=== PATIENT | female | born 1990 | race Hispanic/Latino ===

== ENCOUNTER 2018-08-07 06:17 | Inpatient (IN) | payer BC ==
[~2018-08-07 06:17] MED LIST: CALCIUM500 M1 PO; PRENATABS FA T1 EACH PO
--- NOTE | 2018-08-07 16:57 | PR ---
[facility] [address] [place], [place] [address] Signed Progress Notes IP Datetime Report Generated by CPN: 08/07/2018 16:57 PROGRESS NOTES: [id number] Impression: Slow Progression of Labor Procedures: Sterile Vag Exam Plan: Continue present management Informed Consent Obtain: Vaginal Delivery; Risks, Benefits and Alternatives Discussed VITAL SIGNS: [id number] Vital Signs: Reviewed; Within Normal Limits EXAM: [id number] Dilatation: 4.0 Effacement: 70 Station: -3 Uterine Contractions: q 2 to 4 min MEMBRANES: [id number] Membrane Status: Ruptured Comments: Becoming more uncomfortable with pitocin but slow progress. Will continue. Fetus A: [id number] FHR Baseline: 140 Variability: Moderate 6-25bpm Accelerations: 15X15 Decelerations: None FHR Category: Category I Presentation: Vertex Comments on Fetus A: No evidence of metabolic acidosis Fetus B: [id number] Signing Physician: Aury Villar MD Copies: ~ *Electronically Signed* 08/07/18 1657 AURY VILLAR MD PATIENT NAME: ROLO GABRIEL PROGRESS NOTE DATE OF : 89 PHYSICIAN: AURY VILLAR MD RPT #: [id number] REPORT IS CONFIDENTIAL AND NOT TO BE RELEASED WITHOUT AUTHORIZATION
--- NOTE | 2018-08-07 19:09 | PR ---
[facility] [address] [place], [place] [address] Signed Progress Notes IP Datetime Report Generated by MANOJ: 08/07/2018 19:09 PROGRESS NOTES: [id number] Impression: Normal progression of labor; Non-reassuring heart rate Procedures: Intrauterine Pressure Catheter; Scalp Electrode Other Procedures: scalp electrode not working so back doppler Plan: Anticipate Vaginal Delivery Informed Consent Obtain: Vaginal Delivery; Risks, Benefits and Alternatives Discussed VITAL SIGNS: [id number] Vital Signs: Reviewed; Within Normal Limits EXAM: [id number] Dilatation: 9.5 Effacement: 100 Station: 0 Uterine Contractions: q 2 to 4 min MEMBRANES: [id number] Membrane Status: Ruptured Amniotic Fluid Color: Clear Comments: called for frequent deep variable decels; during evlauation patient went from 4 to 7 to 9.5 cm Pitocin already d/c'd and on O2 with recovery of FHR, so close monitoring with rapid progress, so expected delivery soon. Dr. Villar present for delivery. Fetus A: [id number] FHR Baseline: 135 Variability: Moderate 6-25bpm Accelerations: 15X15 Decelerations: Variable FHR Category: Category I Presentation: Vertex Comments on Fetus A: No evidence of metabolic acidosis Fetus B: [id number] Signing Physician: Rony Tong MD Copies: ~ *Electronically Signed* 08/07/18 1909 RONY TONG MD PATIENT NAME: ROLO GABRIEL PROGRESS NOTE DATE OF : 90 PHYSICIAN: RONY TONG MD RPT #: [id number] REPORT IS CONFIDENTIAL AND NOT TO BE RELEASED WITHOUT AUTHORIZATION
--- NOTE | 2018-08-08 07:43 | PR ---
[facility] [address] [facility] [facility] [place], [place] [address] Signed PP Progress Notes Datetime Report Generated by MANOJ: 08/08/2018 07:43 SUBJECTIVE: [id number] Pain: Within normal limits Vital Signs: [id number] Vital Signs: Reviewed; Within Normal Limits EXAM: [id number] Cardiovascular: Not Done Respiratory: Not Done Abdomen/Uterus: Abnormal Lochia: Normal Vulva/Perineum: Not Done Breasts: Not Done CVA Tenderness: Not Done Extremities: Normal Incision: Not Applicable Progress: Abnormal Exam Comments: Fundus firm, NT @ U-1 H/H 11.3/33.5, WBC 9.8, plat 209k IMPRESSION/PLAN/PROCEDURES: [id number] Impression: Normal progression; difficulties Plan: Continue present management; consult Progress Notes: Doing well other than breast feeding issues. Signing Physician: Aury Villar MD Copies: ~ *Electronically Signed* 08/08/18 0743 AURY VILLAR MD PATIENT NAME: ROLO GABRIEL PROGRESS NOTE DATE OF : 90 PHYSICIAN: AURY VILLAR MD RPT #: [id number] REPORT IS CONFIDENTIAL AND NOT TO BE RELEASED WITHOUT AUTHORIZATION
--- NOTE | 2018-08-09 09:02 | PR ---
[facility] [address] [place] [address] Signed PP Progress Notes Datetime Report Generated by CPN: 08/09/2018 09:01 SUBJECTIVE: [id number] Pain: Within normal limits Vital Signs: [id number] Vital Signs: Reviewed; Within Normal Limits EXAM: [id number] Cardiovascular: Not Done Respiratory: Not Done Abdomen/Uterus: Abnormal Lochia: Normal Vulva/Perineum: Not Done Breasts: Not Done CVA Tenderness: Not Done Extremities: Normal Incision: Not Applicable Progress: Normal Exam Comments: Fundus firm, NT @ U-1. IMPRESSION/PLAN/PROCEDURES: [id number] Impression: Normal progression Plan: Discharge Procedures: None Progress Notes: Doing well. She is ready for D/C. Signing Physician: Aury Villar MD Copies: ~ *Electronically Signed* 08/09/18900 AURY VILLAR MD PATIENT NAME: ROLO GABRIEL PROGRESS NOTE DATE OF : 90 PHYSICIAN: AURY VILLAR MD RPT #: [id number] REPORT IS CONFIDENTIAL AND NOT TO BE RELEASED WITHOUT AUTHORIZATION
== END 2018-08-09 13:25 | disposition home or self-care (01) | DRG 807 ==
LOC: FBCO 06:17 → FBC 07:54
PROVIDERS: ADMIT Obstetrics & Gynecology
PROC: 10E0XZZ Delivery of Products of Conception, External Approach (ICD-10-PCS; principal; 2018-08-07)
PROC: 10H07YZ Insertion of Other Device into Products of Conception, Via Natural or Artificial Opening (ICD-10-PCS; 2018-08-07)
DX: O42.92 Full-term premature rupture of membranes, unspecified as to length of time between rupture and onset of labor (principal); Z37.0 Single live birth; Z3A.38 38 weeks gestation of pregnancy; O76 Abnormality in fetal heart rate and rhythm complicating labor and delivery; O69.81X0 Labor and delivery complicated by cord around neck, without compression, not applicable or unspecified; O99.214 Obesity complicating childbirth; E66.9 Obesity, unspecified
CPT/HCPCS: 36415; 82803; 84112; 85027; J2590